=== PATIENT | male | born 1980 | race African-American/Black ===

== ENCOUNTER 2017-03-02 08:41 | Emergency (ER) | payer OTHER ==
[~2017-03-02] VITALS: Ht 175.3 cm; Wt 93.3 kg
[~2017-03-02 08:41] MED LIST: NORCO 5/3251 TABLET PO
[2017-03-02] MEDS ORDERED: TYLENOL WITH C1 EACH PO (11:48)
[2017-03-02 12:01] VITALS: BP 148/78
== END 2017-03-02 12:12 | disposition home or self-care (01) ==
LOC: EME 08:41 → EXP 08:41
PROC: 0RSKXZZ Reposition Left Shoulder Joint, External Approach (ICD-10-PCS; principal; 2017-03-02)
DX: S43.015A Anterior dislocation of left humerus, initial encounter (principal); W10.9XXA Fall (on) (from) unspecified stairs and steps, initial encounter; G89.29 Other chronic pain; M54.2 Cervicalgia; M54.9 Dorsalgia, unspecified; Z87.891 Personal history of nicotine dependence
CPT/HCPCS: 73030; 99281; 99285; J2270; J7030